=== PATIENT | male | born 1930 | race Caucasian/White ===

== ENCOUNTER → 2016-06-23 | Outpatient (CLI) | payer OTHER ==
[~2016-06-23] MED LIST: ATOR-14 PO; CZR25 PO; DONE1TAB26 PO; ESCI1TAB6 PO; FINA1TAB36 PO; MEMA1CAP3 PO; MEMA1TAB3 PO; OXGN; OXYGEN; PRED10TA PO; PRT40 PO; RANI150T2 PO; ULT/50 PO
[2016-06-23 12:06] LABS: BASO % 0.1 %; BASO ABS # 0.02 K/uL (0-0.2); COMPLETE YES; EOS % 0.5 %; HEMATOCRIT 36.5 % (42-52); IG% 0.3 %; LYMPH % 7.3 %; LYMPH ABS # 1.04 K/uL (1.2-3.4); MEAN CELL VOLUME 93.8 fL (80-100); MEAN CORPUSCULAR HEMOGLOBIN 31.4 pg (25-34); MEAN CORPUSCULAR HGB CONC 33.4 g/dl (32-36); MEAN PLATELET VOLUME 9.2 fL (7.4-10.4); MONO % 7.2 %; NEUT % 84.6 %; PLATELET COUNT 350 K/uL (130-400); RED BLOOD COUNT 3.89 M/uL (4.7-6.1)
[2016-06-23 13:02] LABS: ALT/SGPT 24 U/L (12-78); AST/SGOT 27 U/L (15-37); BLOOD UREA NITROGEN 15 mg/dl (7-18); CALCIUM 9.1 mg/dl (8.5-10.1); CARBON DIOXIDE 33 mmol/L (21-32); CHLORIDE 101 mmol/L (98-107); CHOLESTEROL 138 mg/dl (0-200); GLUCOSE 82 mg/dl (70-99); SODIUM 138 mmol/L (136-145)
[2016-06-23 13:13] LABS: ALB/GLOB RATIO 1.2 (0.9-2); ALKALINE PHOSPHATASE 77 U/L (45-117); CHOLESTEROL/HDL RATIO 1.9; HDL CHOLESTEROL 72 mg/dl; LDL CHOLESTEROL CALCULATED 48 mg/dl; TRIGLYCERIDES 88 mg/dl (0-150); VERY LOW DENSITY LIPOPROT CALC 18 mg/dl
== END | disposition home or self-care (01) ==
LOC: C.LAB1850 10:52
PROVIDERS: ATTEND Internal Medicine
DX: J84.9 Interstitial pulmonary disease, unspecified (principal); E78.5 Hyperlipidemia, unspecified; R41.3 Other amnesia

== ENCOUNTER → 2016-07-07 | Outpatient (CLI) | payer OTHER ==
--- NOTE | 2016-07-07 16:24 | DIAGNOSTIC IMAGING REPORT ---
L-SPINE MIN 4 VIEWS ROUTINE CLINICAL HISTORY: Low back pain. COMPARISON: CT of the abdomen and pelvis June 06, 2015. FINDINGS: Airspace opacities are noted within visualized portions of the lungs. There is extensive atherosclerotic plaque of the abdominal aorta. There is mild levoscoliosis of the lumbar spine. Note is made of 9 mm of anterolisthesis of L4 and L5. 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 Evaluate for fracture difficult on this exam due to scoliosis, degenerative and congenital abnormalities. No acute fracture is identified. There is moderate multilevel degenerative disc disease and severe multilevel facet arthrosis. IMPRESSION: 1. Mild levoscoliosis of the lumbar spine and grade I anterolisthesis of L4 and L5. 2. Decreased sensitivity for detection of fracture, as described above. However, no acute fracture identified. 3. Moderate multilevel degenerative disc disease and severe multilevel facet arthrosis. Electronically signed by: Lucas Valadez M.D. 07/07/2016 4:22 PM Dictated Date/Time: 07/07/2016 4:18 PM
== END | disposition home or self-care (01) ==
LOC: C.RAD1850 16:04
PROVIDERS: ATTEND Physician Assistant
DX: M54.5 Low back pain (principal); M43.16 Spondylolisthesis, lumbar region; M51.36 Other intervertebral disc degeneration, lumbar region

== ENCOUNTER 2016-07-24 20:13 | Inpatient (IN) | payer OTHER ==
[~2016-07-24] VITALS: Ht 152.4 cm; Wt 56.6 kg
[~2016-07-24 20:13] MED LIST changes: -CZR25 PO; -MEMA1TAB3 PO; -OXGN; -RANI150T2 PO; -ULT/50 PO
[2016-07-24] MEDS ORDERED: ULT/50 PO (20:29)
[2016-07-24] MEDS ORDERED: CZR25 PO (20:29)
[2016-07-24] MEDS ORDERED: MEMA1TAB3 PO (20:29)
[2016-07-24] MEDS ORDERED: RANI150T2 PO (20:29)
[2016-07-24] MEDS ORDERED: OPTIRAY 320 IV PRN (20:30)
[2016-07-24] MEDS ORDERED: ALBUT/IPRATROP 3MG/0.5MG NEB 3 ML VIAL INH ONE (20:30)
[2016-07-24 20:56] LABS: HEMATOCRIT 30.4 % (42-52); MEAN CELL VOLUME 90.7 fL (80-100); MEAN CORPUSCULAR HEMOGLOBIN 31.6 pg (25-34); MEAN CORPUSCULAR HGB CONC 34.9 g/dl (32-36); MEAN PLATELET VOLUME 8.4 fL (7.4-10.4); PLATELET COUNT 411 K/uL (130-400); RED BLOOD COUNT 3.35 M/uL (4.7-6.1); WHITE BLOOD COUNT 22.16 K/uL (4.8-10.8)
[2016-07-24 21:05] LABS: ISTAT CREATININE 1.1 mg/dl (0.6-1.3); ISTAT HEMOGLOBIN 10.9 g/dl (14.0-18.0); ISTAT IONIZED CALCIUM 1.13 mmol/l (1.12-1.32)
--- NOTE | 2016-07-24 21:06 | EMERGENCY ROOM VISIT NOTE ---
History Report prepared by Jake: Jenna Collier Under the Supervision of: Dr. French Joshi M.D. First contact with patient: 20:21 Chief Complaint: SHORTNESS OF BREATH Stated Complaint: BACK PAIN History of Present Illness The patient is an 86 year old male who presents to the Emergency Room with complaints of worsening shortness of breath starting prior to arrival. The patient came to the ED by ambulance. The patient states that he has a history of lung cancer and that he is normally on 4 L of O2. The patient complains of being pale, diaphoretic, and mid-back pain. He denies any chest pain. Source of History: patient Onset: prior to arrival Position: other Quality: other (global) Timing: worsening Associated Symptoms: + back pain, + diaphoresis, No chest pain Note: The patient complains of being pallor. Review of Systems See HPI for pertinent positives & negatives. A total of 10 systems reviewed and were otherwise negative. Past Medical & Surgical Medical Problems: (1) Adverse reaction to drug in therapeutic use (2) Alzheimer's Disease (3) Back pain (4) Dementia (5) Esophageal Reflux (6) General Osteoarthrosis (7) Hematochezia due to medication (8) History of prostate cancer (9) Hypertension Nos (10) Hypoxemia (11) Intracerebral Hemorrhage (12) Lung cancer (13) Osteoarthro Nos-Oth Site (14) Pulmonary fibrosis Family History Cancer Heart disease Hypertension Social History Smoking Status: Former Smoker Alcohol Use: none Drug Use: none Marital Status: Housing Status: lives with significant other Occupation Status: retired Current/Historical Medications Scheduled Atorvastatin (Lipitor), 10 MG PO DAILY Donepezil Hydrochloride (Donepezil Hcl), 10 MG PO HS Escitalopram Oxalate (Lexapro), 5 MG PO HS Finasteride (Alopecia) (Finasteride), 5 MG PO DAILY Losartan Potassium (Losartan Potassium), 25 MG PO DAILY Memantine HCl (Memantine HCl), 5 MG PO BID Oxygen (Oxygen), 4 LITERS NA CONTINOUS Prednisone (Prednisone), 10 MG PO DAILY Ranitidine HCl (Ranitidine HCl), 150 MG PO DAILY Scheduled PRN Tramadol Hcl (Ultram), 50 MG PO Q8 PRN for Pain Allergies Coded Allergies: No Known Allergies (Unverified , 07/24/16) Physical Exam Vital Signs Date Time Temp Pulse Resp B/P Pulse Ox O2 Delivery O2 Flow Rate FiO2 07/24/16 22:31 100 20 117/63 95 BiPAP 07/24/16 21:52 100 22 176/93 97 BiPAP 07/24/16 21:15 88 22 95 BiPAP/CPAP 60 07/24/16 21:13 22 97 07/24/16 20:43 96 BiPAP 60 07/24/16 20:41 95 BiPAP 60 07/24/16 20:40 92 Non-Rebreather 10.0 07/24/16 20:34 36.7 94 26 155/79 72 Nasal Cannula 4.0 07/24/16 20:34 72 Nasal Cannula 4.0 07/24/16 20:28 93 Physical Exam GENERAL: Patient is well-nourished and cachetic in appearance. HEAD: Normocephalic atraumatic EYES: Ocular movements intact pupils equal and react to light OROPHARYNX mucous membranes are moist no exudates present no erythema or edema present NECK: Supple no nuchal rigidity CHEST: Good equal expansion LUNGS: Clear and equal to auscultation CARDIAC: Normal S1 and S2 ABDOMEN: Soft nontender no guarding BACK: No CVA tenderness EXTREMITIES: No pain upon palpation normal muscle strength in all groups no clubbing cyanosis or edema NEURO: Patient is following commands is answering questions appropriately. Alert and oriented x3 Cranial Nerves 2-12 grossly intact Medical Decision & Procedures ER Provider Diagnostic Interpretation: Radiology results as stated below per my review and radiologist interpretation: CHEST ONE VIEW PORTABLE HISTORY: Short of breath. COMPARISON: Chest 06/07/2015. FINDINGS: Progression of the extensive bilateral airspace opacities, left greater than right. No pneumothorax. Suspect a small left pleural effusion. The heart is stable in size. IMPRESSION: Progression of the extensive bilateral airspace opacities. This favors a pneumonia. Electronically signed by: Omari Marx M.D. 07/24/2016 9:07 PM Dictated Date/Time: 07/24/2016 9:06 PM CHEST CTA for PULMONARY ARTERIES CT DOSE: 403.98 mGy.cm HISTORY: Short of breath. TECHNIQUE: Multiaxial CT images of the chest were performed following the intravenous administration of contrast to evaluate the pulmonary arteries. Maximal intensity projection images were also obtained. COMPARISON STUDY: Chest CT 03/14/2015. FINDINGS: Fusion of the T12-L1 vertebral bodies. This remains unchanged. Mild central compression deformity at T11. This is new from the prior studies and likely represents an acute compression fracture. Tortuous descending thoracic aorta. No evidence for an aortic dissection. Trace right and small left pleural effusions have progressed. Subsegmental pulmonary arteries and the majority of the right lung segmental pulmonary arteries are nondiagnostic due to the motion artifact. The remaining pulmonary arteries show no evidence for pulmonary embolus. The heart is mildly enlarged. No pneumothorax. Mucoid material within the left mainstem bronchus. There is now dense consolidation involving the majority of the left lower lobe and lingula. There are groundglass opacities within the left lung apex. Progressive groundglass and consolidative airspace opacities within the right lung. Multiple small foci of cavitation seen within the areas of consolidation most pronounced within the left lower lobe. Therefore, these findings favor a necrotizing pneumonia. The visualized liver and spleen are unremarkable. No significant mediastinal or hilar lymphadenopathy. IMPRESSION: 1. No definite evidence for pulmonary embolus with limitations as described above. 2. Significant progression of the bilateral airspace opacities as described above. These also demonstrate small areas of cavitation consistent with a necrotizing pneumonia. 3. Trace right and small left pleural effusions. 4. Mild central compression deformity at T11 which is new from the prior studies. Electronically signed by: Omari Marx M.D. 07/24/2016 9:37 PM Dictated Date/Time: 07/24/2016 9:26 PM Laboratory Results Test 07/24/16 20:45 07/24/16 20:52 07/24/16 21:35 07/24/16 21:46 Immature Granulocyte % (Auto) 0.3 % White Blood Count 22.16 K/uL (4.8-10.8) Red Blood Count 3.35 M/uL (4.7-6.1) Hemoglobin 10.6 g/dL (14.0-18.0) Hematocrit 30.4 % (42-52) Mean Corpuscular Volume 90.7 fL (80-100) Mean Corpuscular Hemoglobin 31.6 pg (25-34) Mean Corpuscular Hemoglobin Concent 34.9 g/dl (32-36) Platelet Count 411 K/uL (130-400) Mean Platelet Volume 8.4 fL (7.4-10.4) Neutrophils (%) (Auto) 90.8 % Lymphocytes (%) (Auto) 3.8 % Monocytes (%) (Auto) 5.1 % Eosinophils (%) (Auto) 0.0 % Basophils (%) (Auto) 0.0 % Neutrophils # (Auto) 20.11 K/uL (1.4-6.5) Lymphocytes # (Auto) 0.84 K/uL (1.2-3.4) Monocytes # (Auto) 1.13 K/uL (0.11-0.59) Eosinophils # (Auto) 0.00 K/uL (0-0.5) Basophils # (Auto) 0.01 K/uL (0-0.2) Immature Granulocyte # (Auto) 0.07 K/uL (0.00-0.02) Total Bilirubin 0.9 mg/dl (0.2-1) Aspartate Amino Transf (AST/SGOT) 41 U/L (15-37) Alanine Aminotransferase (ALT/SGPT) 26 U/L (12-78) Alkaline Phosphatase 123 U/L (45-117) Total Creatine Kinase 305 U/L (39-308) Creatine Kinase MB 7.3 ng/ml (0.5-3.6) Creatine Kinase MB Ratio 2.4 (0-3.0) Troponin I 0.044 ng/ml (0-0.045) Total Protein 7.0 gm/dl (6.4-8.2) Albumin 3.3 gm/dl (3.4-5.0) Globulin 3.7 gm/dl (2.5-4.0) Albumin/Globulin Ratio 0.9 (0.9-2) Bedside Hemoglobin 10.9 g/dl (14.0-18.0) Bedside Hematocrit 32 % (42-52) Bedside Sodium 124 mEq/L (135-144) Bedside Potassium 4.7 mEq/L (3.3-5.0) Bedside Chloride 84 mEq/L (101-112) Bedside Total CO2 28 mEq/l (24-31) Bedside Blood Urea Nitrogen 30 mg/dl (7-18) Bedside Creatinine 1.1 mg/dl (0.6-1.3) Bedside Glucose (other) 109 mg/dl (70-99) Bedside Ionized Calcium (Petra) 1.13 mmol/l (1.12-1.32) Urine Color YELLOW Urine Appearance CLEAR (CLEAR) Urine pH 5.5 (4.5-7.5) Urine Specific Odell 1.028 (1.000-1.030) Urine Protein 1+ (NEG) Urine Glucose (UA) NEG (NEG) Urine Ketones TRACE (NEG) Urine Occult Blood 1+ (NEG) Urine Nitrite NEG (NEG) Urine Bilirubin NEG (NEG) Urine Urobilinogen NEG (NEG) Urine Leukocyte Esterase NEG (NEG) Urine WBC (Auto) 1-5 /hpf (0-5) Urine RBC (Auto) 0-4 /hpf (0-4) Urine Hyaline Casts (Auto) 10-30 /lpf (0-5) Urine Epithelial Cells (Auto) 10-20 /lpf (0-5) Urine Bacteria (Auto) NEG (NEG) Arterial Blood pH 7.42 (7.35-7.45) Arterial Blood Partial Pressure CO2 42 mmHg (35-46) Arterial Blood Partial Pressure O2 77 mm/Hg (80-95) Arterial Blood HCO3 27 mmol/L (19-24) Arterial Blood Oxygen Saturation 93.7 % (90-95) Arterial Blood Base Excess 2.2 mEq/L (-9-1.8) Arterial Blood Gas Delivery 60% Mata Test POS (POS) Labs reviewed by ED physician. Medications Administered Medications (Trade) Dose Ordered Sig/Jared Route Start Time Stop Time Status Last Admin Dose Admin Albuterol/ Ipratropium (Duoneb) 12 ml ONE ONCE INH 07/24/16 20:30 07/24/16 20:31 DC 07/24/16 20:30 12 ML Piperacillin Sod/ Tazobactam Sod (Zosyn Iv) 4.5 gm NOW STAT IV 07/24/16 21:23 07/24/16 21:24 DC 07/24/16 21:54 4.5 GM Levofloxacin 750 mg 750 mg NOW ONCE IV 07/24/16 21:30 07/24/16 21:31 DC 07/24/16 22:23 750 MG Vancomycin HCl/ Sodium Chloride (Vancomycin Inj/ Nss 250ml) 270 ml @ 125 mls/hr NOW STAT IV 07/24/16 21:23 07/24/16 23:32 DC 07/24/16 22:22 125 MLS/HR Morphine Sulfate (MoRPHine SULFATE INJ) 4 mg NOW STAT IV 07/24/16 22:11 07/24/16 22:13 DC 07/24/16 22:22 4 MG Ondansetron HCl 4 mg 4 mg NOW STAT IV 07/24/16 22:11 07/24/16 22:13 DC 07/24/16 22:23 4 MG Sodium Chloride (Nss 500ml) 500 ml @ 999 mls/hr Q31M STAT IV 07/24/16 22:11 07/24/16 22:41 DC 07/24/16 22:31 999 MLS/HR Methylprednisolone Sodium Succinate (Solu-Medrol IV) 60 mg NOW STAT IV 07/24/16 22:15 07/24/16 22:16 DC 07/24/16 22:22 60 MG Haloperidol (Haldol Tab) 5 mg NOW STAT PO 07/24/16 23:24 07/24/16 23:25 DC 07/24/16 23:36 5 MG Morphine Sulfate (MoRPHine SULFATE INJ) 4 mg NOW STAT IV 07/24/16 23:24 07/24/16 23:25 DC 07/24/16 23:36 4 MG ECG Indication: SOB/dyspnea Rate (beats per minute): 95 Rhythm: sinus rhythm Findings: 1st degree AV block, no acute ischemic change, no ectopy ED Course 2021: Past medical records reviewed. The patient was evaluated in room C3. A complete history and physical examination was performed. 2029: Ordered Duoneb 12 ml INH. 2122: Ordered Vancomycin HCl 1000 mg/ Sodium Chloride 270 ml @ 125 mls/hr IV, Zosyn Iv 4.5 gm IV. 2129: Ordered Levofloxacin 750 mg IV. 2134: I reevaluated the patient and informed the patient's family of the findings. 2207: I discussed the patient's case with Dr. Malhotra, he has agreed to evaluate the patient for further management and care. Medical Decision Medication Reconciliation: I attest that I have personally reviewed the patient' s current medication list. Blood Pressure Screening: Patient was found to have an elevated blood pressure and was referred to their primary care doctor for recheck and further treatment. Differential diagnosis: Etiologies such as infections, reactive airway disease, pneumonia, pneumothorax , COPD, CHF, cardiac ischemia, pulmonary embolism, musculoskeletal, gastrointestinal, as well as others were entertained. This is an 86-year-old male who presents emergency department hypoxic complaining of back pain. The patient was given an hour-long breathing treatment and started on antibiotics in addition the patient was also given normal saline bolus. Blood cultures were obtained. I did discuss the case with the hospitalist service however the patient has what appears to be either necrotizing pneumonia or adenocarcinoma I CAT scan so was also discussed with Dr. Kidd who agreed to see the patient in the morning. Patient was in agreement with the treatment plan. Consults Time Called: 2202 Consulting Physician: Dr. Malhotra Returned Call: [phone] I discussed the patient's case with Dr. Malhotra, he has agreed to evaluate the patient for further management and care. Impression Primary Impression: Pneumonia Critical Care I have personally spent greater than 30 minutes of critical care time in the direct management of this patient. This includes bedside care, interpretation of diagnostic studies, and testing, discussion with consultants, patient, and family members, and other required patient management activities. This 30 minutes is in excess of all separately billable procedures. Scribe Attestation The scribe's documentation has been prepared under my direction and personally reviewed by me in its entirety. I confirm that the note above accurately reflects all work, treatment, procedures, and medical decision making performed by me. Departure Information Dispostion Being Evaluated By Hospitalist Referrals Bhaskar Martinez M.D. (PCP) Patient Instructions My [facility] Problem Qualifiers Primary Impression: Pneumonia Pneumonia type: due to unspecified organism Laterality: unspecified laterality Lung location: unspecified part of lung Qualified Codes: J18.9 - Pneumonia, unspecified organism
--- NOTE | 2016-07-24 21:09 | DIAGNOSTIC IMAGING REPORT ---
CHEST ONE VIEW PORTABLE HISTORY: Short of breath. COMPARISON: Chest 06/07/2015. FINDINGS: Progression of the extensive bilateral airspace opacities, left greater than right. No pneumothorax. Suspect a small left pleural effusion. The heart is stable in size. IMPRESSION: Progression of the extensive bilateral airspace opacities. This favors a pneumonia. Electronically signed by: Omari Marx M.D. 07/24/2016 9:07 PM Dictated Date/Time: 07/24/2016 9:06 PM
[2016-07-24] MEDS ORDERED: OXGN (21:11)
[2016-07-24 21:12] LABS: BUN/CREATININE RATIO 31.9 (10-20); CREATININE 0.98 mg/dl (0.60-1.40); POTASSIUM 4.6 mmol/L (3.5-5.1)
[2016-07-24 21:13] VITALS: PULSE 22; O2SAT 97
[2016-07-24 21:14] LABS: BASO ABS # 0.01 K/uL (0-0.2); COMPLETE YES; IG% 0.3 %; LYMPH % 3.8 %; LYMPH ABS # 0.84 K/uL (1.2-3.4); MONO % 5.1 %; NEUT % 90.8 %
[2016-07-24 21:15] VITALS: PULSE 88; O2SAT 95
[2016-07-24 21:17] LABS: ALB/GLOB RATIO 0.9 (0.9-2); CKMB/CK RATIO 2.4 (0-3.0)
[2016-07-24] MEDS ORDERED: PIPERACILLIN/TAZOBACTAM 4.5 GM/100ML D5W IV STA (21:23)
[2016-07-24] MEDS ORDERED: VANCOMYCIN INJ 1,000 MG in SODIUM CHLORIDE 0.9% 250ML 250 ML IV STA (21:23)
[2016-07-24] MEDS ORDERED: LEVAQUIN 750MG / 150ML D5W IV ONE (21:30)
--- NOTE | 2016-07-24 21:38 | DIAGNOSTIC IMAGING REPORT ---
CHEST CTA for PULMONARY ARTERIES CT DOSE: 403.98 mGy.cm HISTORY: Short of breath. TECHNIQUE: Multiaxial CT images of the chest were performed following the intravenous administration of contrast to evaluate the pulmonary arteries. Maximal intensity projection images were also obtained. COMPARISON STUDY: Chest CT 03/14/2015. FINDINGS: Fusion of the T12-L1 vertebral bodies. This remains unchanged. Mild central compression deformity at T11. This is new from the prior studies and likely represents an acute compression fracture. Tortuous descending thoracic aorta. No evidence for an aortic dissection. Trace right and small left pleural effusions have progressed. Subsegmental pulmonary arteries and the majority of the right lung segmental pulmonary arteries are nondiagnostic due to the motion artifact. The remaining pulmonary arteries show no evidence for pulmonary embolus. The heart is mildly enlarged. No pneumothorax. Mucoid material within the left mainstem bronchus. There is now dense consolidation involving the majority of the left lower lobe and lingula. There are groundglass opacities within the left lung apex. Progressive groundglass and consolidative airspace opacities within the right lung. Multiple small foci of cavitation seen within the areas of consolidation most pronounced within the left lower lobe. Therefore, these findings favor a necrotizing pneumonia. The visualized liver and spleen are unremarkable. No significant mediastinal or hilar lymphadenopathy. IMPRESSION: 1. No definite evidence for pulmonary embolus with limitations as described above. 2. Significant progression of the bilateral airspace opacities as described above. These also demonstrate small areas of cavitation consistent with a necrotizing pneumonia. 3. Trace right and small left pleural effusions. 4. Mild central compression deformity at T11 which is new from the prior studies. Electronically signed by: Omari Marx M.D. 07/24/2016 9:37 PM Dictated Date/Time: 07/24/2016 9:26 PM
[2016-07-24 21:54] LABS: CALCIUM 8.7 mg/dl (8.5-10.1)
[2016-07-24 21:55] LABS: ARTERIAL BLD GAS O2 SATURATION 93.7 % (90-95); ARTERIAL BLOOD GAS BASE EXCESS 2.2 mEq/L (-9-1.8); ARTERIAL BLOOD GAS HCO3 27 mmol/L (19-24); ARTERIAL BLOOD GAS PO2 77 mm/Hg (80-95); ARTERIAL BLOOD GAS pH 7.42 (7.35-7.45)
[2016-07-24 21:56] LABS: ALLEN TEST POS (POS); O2 ADMINISTRATION 60%
[2016-07-24 21:58] LABS: URINE APPEARANCE CLEAR (CLEAR); URINE BILIRUBIN NEG (NEG); URINE COLOR YELLOW; URINE NITRITE NEG (NEG); URINE PH 5.5 (4.5-7.5); URINE SPECIFIC GRAVITY 1.028 (1.000-1.030); UROBILINOGEN NEG (NEG)
[2016-07-24 22:09] LABS: MANUAL MICROSCOPIC REQUIRED? NO; REVIEW REQ? NO
[2016-07-24] MEDS ORDERED: SODIUM CHLORIDE 0.9% 500ML 500 ML IV STA (22:11)
[2016-07-24] MEDS ORDERED: ONDANSETRON INJ 2 MG/ML 2 ML VIAL IV STA (22:11)
[2016-07-24] MEDS ORDERED: MoRPHine SULFATE 4 MG/ML 1 ML CARP\\VIAL IV STA ×2 (22:11→23:24)
[2016-07-24] MEDS ORDERED: METHYLPREDNISOLONE 125 MG VIAL IV STA (22:15)
[2016-07-24] MEDS ORDERED: HALOPERIDOL 5 MG TAB PO STA (23:24)
[2016-07-24] MEDS ORDERED: MAGNESIUM HYDROXIDE SUSP 30 ML UDC PO PRN (23:30)
[2016-07-24] MEDS ORDERED: ACETAMINOPHEN 325 MG TAB PO PRN (23:30)
[2016-07-24] MEDS ORDERED: ALUMINUM/MAGNESIUM/SIMETH (MAALOX MAX) 30 ML UDC PO PRN (23:30)
[2016-07-24] MEDS ORDERED: POLYETHYLENE (MIRALAX) 17 GM PACK PO PRN (23:30)
[2016-07-24] MEDS ORDERED: ONDANSETRON INJ 2 MG/ML 2 ML VIAL IV PRN (23:30)
[2016-07-24] MEDS ORDERED: MoRPHine SULFATE 2 MG/ML CARP IV STA (23:38)
[2016-07-24] MEDS ORDERED: LORAZEPAM 2 MG/ML 1 ML VIAL IV STA (23:38)
[2016-07-24] MEDS ORDERED: LORAZEPAM 2 MG/ML 1 ML VIAL ONE (23:50)
[2016-07-24] MEDS ORDERED: MoRPHine SULFATE 2 MG/ML CARP ONE (23:50)
--- NOTE | 2016-07-24 23:56 | History and Physical ---
History & Physical Date & Time of Service: July 24, 2016 at 23:55 Chief Complaint: Back Pain Primary Care Physician: Bhaskar Martinez M.D. History of Present Illness Source: patient 86 y/o M Hx dementia, questionable pulmonary fibrosis, lung adenocarcinoma which he has chosen not to treat. The pt normally wears 4l 02 continuous at home. He has become progressively confused, agitated and hypoxic over the course of the day. The family does not report a cough above baseline, CP or fevers. At the time of admission the pt is requiring BIPAP to maintain an adequate saturation and cannot contribute to the HPI due to confusion. A CT chest was obtained and initially read as a necrotizing pneumonia. This was discussed with the cardiothoracic service however and it is felt that the cavitations may be related to his lung CA rather than to an acute infectious process. The pt is a level 5 and the family are aware that his short-term prognosis may be poor. They have indicated that they are amenable to antibiotics and other supportive measures however they were also contemplating a transition to palliative care or hospice. Initial labs are notable for leukocytosis and hyponatremia. Past Medical/Surgical History Medical Problems: (1) Dementia Status: Chronic (2) Lung cancer Status: Chronic Family History Cancer Heart disease Hypertension Social History Smoking Status: Former Smoker Drug Use: none Marital Status: Occupational Status: retired Immunizations History of Influenza Vaccine: Unknown History of Tetanus Vaccine?: Unknown History of Pneumococcal: Unknown History of Hepatitis B Vaccine: Unknown Multi-Drug Resistant Organisms History of MDRO: No Allergies Coded Allergies: No Known Allergies (Unverified , 07/24/16) Home Medications Scheduled Atorvastatin (Lipitor), 10 MG PO DAILY Donepezil Hydrochloride (Donepezil Hcl), 10 MG PO HS Escitalopram Oxalate (Lexapro), 5 MG PO HS Finasteride (Alopecia) (Finasteride), 5 MG PO DAILY Losartan Potassium (Losartan Potassium), 25 MG PO DAILY Memantine HCl (Memantine HCl), 5 MG PO BID Oxygen (Oxygen), 4 LITERS NA CONTINOUS Prednisone (Prednisone), 10 MG PO DAILY Ranitidine HCl (Ranitidine HCl), 150 MG PO DAILY Scheduled PRN Tramadol Hcl (Ultram), 50 MG PO Q8 PRN for Pain Review of Systems Pt cannot provide - brought in for hypoxia and agitation as above Physical Exam Vital Signs Date Time Temp Pulse Resp B/P Pulse Ox O2 Delivery O2 Flow Rate FiO2 07/24/16 22:31 100 20 117/63 95 BiPAP 07/24/16 21:52 100 22 176/93 97 BiPAP 07/24/16 21:15 88 22 95 BiPAP/CPAP 60 07/24/16 21:13 22 97 07/24/16 20:43 96 BiPAP 60 07/24/16 20:41 95 BiPAP 60 07/24/16 20:40 92 Non-Rebreather 10.0 07/24/16 20:34 36.7 94 26 155/79 72 Nasal Cannula 4.0 07/24/16 20:34 72 Nasal Cannula 4.0 07/24/16 20:28 93 General Appearance: + moderate distress Head: normocephalic, atraumatic Eyes: normal inspection, EOMI ENT: normal ENT inspection Neck: supple, + JVD Respiratory/Chest: + pertinent finding (Very poor b/l air movement - crackles audible at mid lungs) Cardiovascular: + tachycardia Abdomen/GI: normal bowel sounds, non tender, soft Back: normal inspection, no CVA tenderness Extremities/Musculoskelatal: normal inspection, normal range of motion Neurologic/Psych: 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, + pertinent finding (Moving all extrems - agitated/confsed - no clear focal deficuts) Skin: normal color, warm/dry, no rash Diagnostics Laboratory Results Results Past 24 Hours Test 07/24/16 20:45 07/24/16 20:52 07/24/16 21:35 07/24/16 21:46 Range/Units White Blood Count 22.16 4.8-10.8 K/uL Red Blood Count 3.35 4.7-6.1 M/uL Hemoglobin 10.6 14.0-18.0 g/dL Hematocrit 30.4 42-52 % Mean Corpuscular Volume 90.7 80-100 fL Mean Corpuscular Hemoglobin 31.6 25-34 pg Mean Corpuscular Hemoglobin Concent 34.9 32-36 g/dl Platelet Count 411 130-400 K/uL Mean Platelet Volume 8.4 7.4-10.4 fL Neutrophils (%) (Auto) 90.8 % Lymphocytes (%) (Auto) 3.8 % Monocytes (%) (Auto) 5.1 % Eosinophils (%) (Auto) 0.0 % Basophils (%) (Auto) 0.0 % Neutrophils # (Auto) 20.11 1.4-6.5 K/uL Lymphocytes # (Auto) 0.84 1.2-3.4 K/uL Monocytes # (Auto) 1.13 0.11-0.59 K/uL Eosinophils # (Auto) 0.00 0-0.5 K/uL Basophils # (Auto) 0.01 0-0.2 K/uL RDW Standard Deviation 44.3 36.4-46.3 fL RDW Coefficient of Variation 13.4 11.5-14.5 % Immature Granulocyte % (Auto) 0.3 % Immature Granulocyte # (Auto) 0.07 0.00-0.02 K/uL Sodium Level 123 136-145 mmol/L Potassium Level 4.6 3.5-5.1 mmol/L Chloride Level 87 98-107 mmol/L Carbon Dioxide Level 29 21-32 mmol/L Anion Gap 7.0 17.0 16-25 mmol/L Blood Urea Nitrogen 31 7-18 mg/dl Creatinine 0.98 0.60-1.40 mg/dl Est Creatinine Clear Calc Drug Dose 37.6 ml/min Estimated GFR () 80.0 Estimated GFR (Non- 69.0 BUN/Creatinine Ratio 31.9 10-20 Random Glucose 103 70-99 mg/dl Calcium Level 8.7 8.5-10.1 mg/dl Total Bilirubin 0.9 0.2-1 mg/dl Aspartate Amino Transf (AST/SGOT) 41 15-37 U/L Alanine Aminotransferase (ALT/SGPT) 26 12-78 U/L Alkaline Phosphatase 123 45-117 U/L Total Creatine Kinase 305 39-308 U/L Creatine Kinase MB 7.3 0.5-3.6 ng/ml Creatine Kinase MB Ratio 2.4 0-3.0 Troponin I 0.044 0-0.045 ng/ml Total Protein 7.0 6.4-8.2 gm/dl Albumin 3.3 3.4-5.0 gm/dl Globulin 3.7 2.5-4.0 gm/dl Albumin/Globulin Ratio 0.9 0.9-2 Bedside Hemoglobin 10.9 14.0-18.0 g/dl Bedside Hematocrit 32 42-52 % Bedside Sodium 124 135-144 mEq/L Bedside Potassium 4.7 3.3-5.0 mEq/L Bedside Chloride 84 101-112 mEq/L Bedside Total CO2 28 24-31 mEq/l Bedside Blood Urea Nitrogen 30 7-18 mg/dl Bedside Creatinine 1.1 0.6-1.3 mg/dl Bedside Glucose (other) 109 70-99 mg/dl Bedside Ionized Calcium (Petra) 1.13 1.12-1.32 mmol/l Urine Color YELLOW Urine Appearance CLEAR CLEAR Urine pH 5.5 4.5-7.5 Urine Specific [place] 1.028 1.000-1.030 Urine Protein 1+ NEG Urine Glucose (UA) NEG NEG Urine Ketones TRACE NEG Urine Occult Blood 1+ NEG Urine Nitrite NEG NEG Urine Bilirubin NEG NEG Urine Urobilinogen NEG NEG Urine Leukocyte Esterase NEG NEG Urine WBC (Auto) 1-5 0-5 /hpf Urine RBC (Auto) 0-4 0-4 /hpf Urine Hyaline Casts (Auto) 10-30 0-5 /lpf Urine Epithelial Cells (Auto) 10-20 0-5 /lpf Urine Bacteria (Auto) NEG NEG Arterial Blood pH 7.42 7.35-7.45 Arterial Blood Partial Pressure CO2 42 35-46 mmHg Arterial Blood Partial Pressure O2 77 80-95 mm/Hg Arterial Blood HCO3 27 19-24 mmol/L Arterial Blood Oxygen Saturation 93.7 90-95 % Arterial Blood Base Excess 2.2 -9-1.8 mEq/L Arterial Blood Gas Delivery 60% Mata Test POS POS Microbiology Results 07/24/16 Blood Culture, Received Pending 07/24/16 Blood Culture, Received Pending Diagnostic Radiology CT chest 1. No definite evidence for pulmonary embolus with limitations as described above. 2. Significant progression of the bilateral airspace opacities as described above. These also demonstrate small areas of cavitation consistent with a necrotizing pneumonia. 3. Trace right and small left pleural effusions. 4. Mild central compression deformity at T11 which is new from the prior studies. EKG Sinus , LAFB , 1st degree AV - no significant change Impression Assessment and Plan 86 y/o M Hx dementia, questionable pulmonary fibrosis, lung adenocarcinoma which he has chosen not to treat. The pt normally wears 4l 02 continuous at home. He has become progressively confused, agitated and hypoxic over the course of the day. The family does not report a cough above baseline, CP or fevers. At the time of admission the pt is requiring BIPAP to maintain an adequate saturation and cannot contribute to the HPI due to confusion. A CT chest was obtained and initially read as a necrotizing pneumonia. This was discussed with the cardiothoracic service however, and it is felt that the cavitations may be related to his lung CA rather than to an acute infectious process. 1) Hypoxia/agitation - acute PNM vs progressive malignant process - history of underlying pulmonary fibrosis per previous records. Pt is currently on Bipap. We will treat for a presumed pneumonia which may also be post-obstructive. Nebs scheduled and pt started on IV steroids. Limited information is available in the chart presently and it would be prudent to contact his primary MD to clarify his chronic conditions including fibrosis which did not appear in the chart during an admission in 2016. The family additionally state that they have not yet seen a resident care provider although they were scheduled to do so. They are requesting a pulmonology consult for further input. Again, they are aware that the pts prognosis may be poor. 2) Hyponatremia - May be related to dehydration or additionally to SIADH owing to CA - we will hydrate aggressively overnight and recheck labs AM. A lower goal should likely be set for correction. 3) Dementia - contributing to current delirium. Pt received Haldol in ER - Ativan PRN provided. 4) Lung CA - pt has made a decision not to treat. DNR/DNI - SCDS - may need to avoid anticoagulation if extensive changes and necrosis are due to CA - he also has a history of PGI bleeds Total time for this admit including review of labs, meds, CT, records - discussion with family and ER attending - 48 min Level of Care Telemetry Resuscitation Status DO NOT RESUSCITATE VTE Prophylaxis VTE Risk Assessment Done? Y/N: Yes Risk Level: High Given or contraindicated: SCD's
[2016-07-25] VITALS (18 sets, daily range): BP systolic 90–166; BP diastolic 50–83; PULSE 22–107; TEMP 36.4–36.9; O2SAT 86–100; Ht 152.4 cm; Wt 56.6 kg
[2016-07-25] MEDS: SODIUM CHLORIDE 0.9% 1000ML 1,000 ML IV SCH ×3 (01:02→20:58)
[2016-07-25] MEDS ORDERED: AMPICILLIN/SULBACTAM CONSULT ACTIVE PRN ×2 (03:15)
[2016-07-25] MEDS: METHYLPREDNISOLONE IV 60 MG in SYRINGE 0 ML IV SCH ×3 (03:51→16:32)
[2016-07-25] MEDS: AMPICILLIN/SULBACTAM SOD INJ 3,000 MG in SODIUM CHLORIDE 0.9% 100ML 100 ML IV SCH ×4 (04:11→21:59)
[2016-07-25] MEDS: AZITHROMYCIN IV 500 MG in DEXTROSE 5% 250ML 250 ML IV SCH (05:41)
[2016-07-25 07:26] LABS: HEMATOCRIT 26.9 % (42-52); MEAN CELL VOLUME 91.8 fL (80-100); MEAN CORPUSCULAR HEMOGLOBIN 31.1 pg (25-34); MEAN CORPUSCULAR HGB CONC 33.8 g/dl (32-36); MEAN PLATELET VOLUME 8.6 fL (7.4-10.4); PLATELET COUNT 376 K/uL (130-400); RED BLOOD COUNT 2.93 M/uL (4.7-6.1); WHITE BLOOD COUNT 17.96 K/uL (4.8-10.8)
[2016-07-25 08:02] LABS: BUN/CREATININE RATIO 28.6 (10-20); CALCIUM 8.1 mg/dl (8.5-10.1); CREATININE 0.95 mg/dl (0.60-1.40); MAGNESIUM 2.4 mg/dl (1.8-2.4); POTASSIUM 4.7 mmol/L (3.5-5.1)
[2016-07-25] MEDS ORDERED: LEVALBUTEROL/IPRATROPIUM NEB INH PRN (10:30)
[2016-07-25] MEDS: LEVALBUTEROL 1.25MG/0.5ML NEB INH SCH ×3 (11:14→19:38)
[2016-07-25] MEDS: IPRATROPIUM BROMIDE NEB SOLN 0.02% 2.5 ML VIAL INH SCH ×3 (11:14→19:38)
[2016-07-25] MEDS ORDERED: LEVALBUTEROL/IPRATROPIUM NEB INH SCH (15:00)
[2016-07-25] MEDS: MoRPHine SULFATE 4 MG/ML 1 ML CARP\\VIAL IV PRN ×2 (19:45→23:31)
[2016-07-25] MEDS: METHYLPREDNISOLONE IV 40 MG in SYRINGE 0 ML IV SCH (23:26)
[2016-07-26] MEDS ORDERED: HALOPERIDOL LACTATE 5 MG/ML 1 ML VIAL IM STA ×2 (00:07→01:27)
[2016-07-26] MEDS ORDERED: LORAZEPAM 2 MG/ML 1 ML VIAL IV PRN ×3 (01:30→08:00)
[2016-07-26] MEDS: IPRATROPIUM BROMIDE NEB SOLN 0.02% 2.5 ML VIAL INH SCH ×4 (02:32→19:06)
[2016-07-26] MEDS: LEVALBUTEROL 1.25MG/0.5ML NEB INH SCH ×4 (02:32→19:06)
[2016-07-26 02:33] VITALS: PULSE 106; O2SAT 91
[2016-07-26] MEDS: AMPICILLIN/SULBACTAM SOD INJ 3,000 MG in SODIUM CHLORIDE 0.9% 100ML 100 ML IV SCH (03:39)
[2016-07-26] MEDS: AZITHROMYCIN IV 500 MG in DEXTROSE 5% 250ML 250 ML IV SCH (06:20)
--- NOTE | 2016-07-26 06:21 | Progress Note ---
Subjective Date of Service: July 25, 2016. Subjective pt arouses in raspy voice, family at bedside and did have prolounged discussion in [address] regarding direction and agressive ness of care, spent 45 minutes with family and patient Pt himself is fatigued and does not speak much, can nod that he is short of breath but comfortable otherwise ROS was unable to be obtained due to lethargy Problem List Medical Problems: (1) Altered mental status Status: Acute (2) Dementia Status: Acute (3) GI bleed Status: Acute (4) Pneumonia Status: Acute (5) Pneumonia Status: Acute (6) Shortness of breath Status: Acute Review of Systems Constitutional: + fatigue, + weakness Objective Vital Signs Date Time Temp Pulse Resp B/P Pulse Ox O2 Delivery O2 Flow Rate FiO2 07/25/16 07:24 100 24 94/57 94 CPAP 35 07/25/16 05:28 96 93 35 07/25/16 04:48 36.9 93 18 90/50 96 BiPAP 07/25/16 04:00 BiPAP 07/25/16 02:40 95 96 40 07/25/16 00:37 36.4 105 24 116/70 98 BiPAP 60 07/25/16 00:34 22 98 50 07/25/16 00:07 98 22 105/59 99 07/24/16 22:31 100 20 117/63 95 BiPAP 07/24/16 21:52 100 22 176/93 97 BiPAP 07/24/16 21:15 88 22 95 BiPAP/CPAP 60 07/24/16 21:13 22 97 07/24/16 20:43 96 BiPAP 60 07/24/16 20:41 95 BiPAP 60 07/24/16 20:40 92 Non-Rebreather 10.0 07/24/16 20:34 36.7 94 26 155/79 72 Nasal Cannula 4.0 07/24/16 20:34 72 Nasal Cannula 4.0 07/24/16 20:28 93 Physical Exam General Appearance: + moderate distress, + thin Neck: supple, trachea midline Respiratory/Chest: + respiratory distress, + decreased breath sounds, + accessory muscle use Cardiovascular: regular rate, rhythm, + systolic murmur Abdomen: normal bowel sounds, soft Neurologic/Psychiatric: + depressed affect, + disoriented Laboratory Results Last 24 Hours Test 07/24/16 20:45 07/24/16 20:52 07/24/16 21:35 07/24/16 21:46 White Blood Count 22.16 K/uL Red Blood Count 3.35 M/uL Hemoglobin 10.6 g/dL Hematocrit 30.4 % Mean Corpuscular Volume 90.7 fL Mean Corpuscular Hemoglobin 31.6 pg Mean Corpuscular Hemoglobin Concent 34.9 g/dl Platelet Count 411 K/uL Mean Platelet Volume 8.4 fL Neutrophils (%) (Auto) 90.8 % Lymphocytes (%) (Auto) 3.8 % Monocytes (%) (Auto) 5.1 % Eosinophils (%) (Auto) 0.0 % Basophils (%) (Auto) 0.0 % Neutrophils # (Auto) 20.11 K/uL Lymphocytes # (Auto) 0.84 K/uL Monocytes # (Auto) 1.13 K/uL Eosinophils # (Auto) 0.00 K/uL Basophils # (Auto) 0.01 K/uL RDW Standard Deviation 44.3 fL RDW Coefficient of Variation 13.4 % Immature Granulocyte % (Auto) 0.3 % Immature Granulocyte # (Auto) 0.07 K/uL Sodium Level 123 mmol/L Potassium Level 4.6 mmol/L Chloride Level 87 mmol/L Carbon Dioxide Level 29 mmol/L Anion Gap 7.0 mmol/L 17.0 mmol/L Blood Urea Nitrogen 31 mg/dl Creatinine 0.98 mg/dl Est Creatinine Clear Calc Drug Dose 37.6 ml/min Estimated GFR () 80.0 Estimated GFR (Non- 69.0 BUN/Creatinine Ratio 31.9 Random Glucose 103 mg/dl Calcium Level 8.7 mg/dl Total Bilirubin 0.9 mg/dl Aspartate Amino Transf (AST/SGOT) 41 U/L Alanine Aminotransferase (ALT/SGPT) 26 U/L Alkaline Phosphatase 123 U/L Total Creatine Kinase 305 U/L Creatine Kinase MB 7.3 ng/ml Creatine Kinase MB Ratio 2.4 Troponin I 0.044 ng/ml Total Protein 7.0 gm/dl Albumin 3.3 gm/dl Globulin 3.7 gm/dl Albumin/Globulin Ratio 0.9 Bedside Hemoglobin 10.9 g/dl Bedside Hematocrit 32 % Bedside Sodium 124 mEq/L Bedside Potassium 4.7 mEq/L Bedside Chloride 84 mEq/L Bedside Total CO2 28 mEq/l Bedside Blood Urea Nitrogen 30 mg/dl Bedside Creatinine 1.1 mg/dl Bedside Glucose (other) 109 mg/dl Bedside Ionized Calcium (Petra) 1.13 mmol/l Urine Color YELLOW Urine Appearance CLEAR Urine pH 5.5 Urine Specific [place] 1.028 Urine Protein 1+ Urine Glucose (UA) NEG Urine Ketones TRACE Urine Occult Blood 1+ Urine Nitrite NEG Urine Bilirubin NEG Urine Urobilinogen NEG Urine Leukocyte Esterase NEG Urine WBC (Auto) 1-5 /hpf Urine RBC (Auto) 0-4 /hpf Urine Hyaline Casts (Auto) 10-30 /lpf Urine Epithelial Cells (Auto) 10-20 /lpf Urine Bacteria (Auto) NEG Arterial Blood pH 7.42 Arterial Blood Partial Pressure CO2 42 mmHg Arterial Blood Partial Pressure O2 77 mm/Hg Arterial Blood HCO3 27 mmol/L Arterial Blood Oxygen Saturation 93.7 % Arterial Blood Base Excess 2.2 mEq/L Arterial Blood Gas Delivery 60% Mata Test POS Test 07/25/16 00:40 07/25/16 06:45 Lactic Acid Level 1.4 mmol/L White Blood Count 17.96 K/uL Red Blood Count 2.93 M/uL Hemoglobin 9.1 g/dL Hematocrit 26.9 % Mean Corpuscular Volume 91.8 fL Mean Corpuscular Hemoglobin 31.1 pg Mean Corpuscular Hemoglobin Concent 33.8 g/dl RDW Standard Deviation 45.7 fL RDW Coefficient of Variation 13.6 % Platelet Count 376 K/uL Mean Platelet Volume 8.6 fL Sodium Level 126 mmol/L Potassium Level 4.7 mmol/L Chloride Level 91 mmol/L Carbon Dioxide Level 27 mmol/L Anion Gap 8.0 mmol/L Blood Urea Nitrogen 27 mg/dl Creatinine 0.95 mg/dl Est Creatinine Clear Calc Drug Dose 38.7 ml/min Estimated GFR () 83.1 Estimated GFR (Non- 71.7 BUN/Creatinine Ratio 28.6 Random Glucose 133 mg/dl Calcium Level 8.1 mg/dl Magnesium Level 2.4 mg/dl Assessment and Plan 86 y/o M presents with acute respiratory failure with progressive lung cancer that pt had previously opted not to treat, normally wearing 4l [address] chest was obtained and initially read as a necrotizing pneumonia. This was discussed with the cardiothoracic service however, and it is felt that the cavitations may be related to his lung CA rather than to an acute infectious process. Hypoxic respiratory failure, acute on chronic, with encephalpathy- acute Pneumonia(mrsa, gram negative or anaerobic) vs progressive malignant process - history of underlying pulmonary fibrosis On Unasyn, azithro, vanco, and steroids, family is aware that the pts prognosis may be poor. Pulmonary med for oversight of medical management Hyponatremia - May be related to dehydration or additionally to SIADH owing to CA - Dementia - contributing to current delirium. Pt received Haldol in ER - Ativan PRN provided for behavior issues. DNR/DNI - DVT prevention, SCDS - avoid anticoagulation if extensive changes and necrosis are due to CA - he also has a history of PGI bleeds discussion with family regarding hospice they are leaning that way but not made final discussion, family tearful at bedside
[2016-07-26 07:21] VITALS: PULSE 102; O2SAT 90
[2016-07-26 07:22] VITALS: PULSE 102; O2SAT 90
[2016-07-26 07:53] VITALS: BP 129/69; PULSE 99; TEMP 36.8; O2SAT 90
[2016-07-26] MEDS ORDERED: MoRPHine SULFATE 4 MG/ML 1 ML CARP\\VIAL IV PRN (08:00)
[2016-07-26 08:18] LABS: CREATININE 0.96 mg/dl (0.60-1.40)
[2016-07-26 08:45] VITALS: O2SAT 90
[2016-07-26] MEDS: METHYLPREDNISOLONE IV 40 MG in SYRINGE 0 ML IV SCH (09:09)
[2016-07-26] MEDS: MoRPHine SULFATE 4 MG/ML 1 ML CARP\\VIAL IV PRN (09:09)
[2016-07-26 09:16] VITALS: BP 127/83; PULSE 106; TEMP 36.3; O2SAT 91
[2016-07-26] MEDS: MoRPHine SULFATE 2 MG/ML CARP IV PRN ×2 (09:43→13:05)
[2016-07-26] MEDS ORDERED: MoRPHine SULF/NSS 250MG/250ML 250 ML IV PRN (10:00)
--- NOTE | 2016-07-26 11:05 | Palliative Care Consultation ---
Consultation Date of Consultation: July 26, 2016. Requesting Physician: Dr. Wells Attending Physician: Dr. Wells Reason for Consultation: Comfort care History of Present Illness This 86 year old male patient presented to the ED two days ago with c/o confusion, SOB, and agitation. He has known lung adenocarcinoma since 2014 and opted for no treatment. CT scan in ED showed cavitations: necrotizing pneumonia vs. lung CA-- determined more likely to be his cancer. The patient's wishes are to not pursue any aggressive treatment, he was made DNR/DNI and admitted to telemetry unit on continuous bipap. Patient's condition not improving, and apparently there were several conversations held between the family and physician about goals of care. Family opted to make patient comfortable. He was transferred to medical unit and palliative care consulted. I met with the family and patient in room 407. Patient is completely disoriented, not responding verbally, making eye contact or even opening eyes. He is now off bipap per the family's wishes and on nasal cannula. He is restless in the bed and moaning. Just received 4mg IV morphine and 1mg IV lorazepam. Marcela, patient's daughter, Mariajose, patient's , and Mariajose's sister all at bedside. Marcela is tearful. They are all in agreement that would like patient to be comfort measures only-- discontinue all antibiotics and meds unrelated to comfort. Marcela said, "I just don't think he looks comfortable. I don't want to see him this way." We discussed a morphine infusion and the family feels this would be best for his comfort. See plan below. Past Medical/Surgical History Medical History: Pulmonary fibrosis Lung cancer Continuous home oxygen use, 4LNC Dementia Social History Smoking Status: Former Smoker History of Alcohol Use: No Drug Use: none Marital Status: Occupation Status: retired Review of Systems unable to obtain ROS Allergies Coded Allergies: No Known Allergies (Unverified , 07/24/16) Medications Current Inpatient Medications Medications (Trade) Dose Ordered Sig/Jared Route Start Time Stop Time Status Last Admin Dose Admin Ioversol (Optiray 320) 100 ml UD PRN IV 07/24/16 20:30 07/28/16 20:29 Al Hydrox/Mg Hydrox/Simethicone (Maalox Max Susp) 15 ml Q4H PRN PO 07/24/16 23:30 08/23/16 23:29 Ondansetron HCl (Zofran Inj) 4 mg Q6H PRN IV 07/24/16 23:30 08/23/16 23:29 Morphine Sulfate (MoRPHine SULFATE INJ) 4 mg Q3H PRN IV 07/25/16 00:00 08/08/16 00:00 07/26/16 09:09 4 MG Ipratropium [place] (Atrovent 0.02% 0.5MG/2.5ML Neb) 0.5 mg Q6R INH 07/25/16 15:00 08/24/16 14:59 07/26/16 07:18 0.5 MG Levalbuterol (Xopenex 1.25MG/ 0.5ML Neb) 1.25 mg Q6R INH 07/25/16 15:00 08/24/16 14:59 07/26/16 07:18 1.25 MG Lorazepam (Ativan Inj) 1 mg Q4H PRN IV 07/26/16 01:30 08/25/16 01:29 07/26/16 02:04 1 MG Morphine Sulfate (MoRPHine SULFATE INJ) 2 mg Q4H PRN IV 07/26/16 08:00 08/09/16 07:59 07/26/16 09:43 2 MG Morphine Sulfate (MoRPHine SULFATE INJ) 4 mg Q4H PRN IV 07/26/16 08:00 08/09/16 07:59 Lorazepam (Ativan Inj) 1 mg Q4H PRN IV 07/26/16 08:00 08/25/16 07:59 07/26/16 09:35 1 MG Lorazepam 0.5 mg 0.5 mg Q4H PRN IV 07/26/16 08:00 08/25/16 07:59 Morphine Sulfate/ Dextrose (Morphine Sulf/ Nss 250MG/250ML) 250 ml @ 0 mls/hr Q0M PRN IV 07/26/16 10:00 08/09/16 09:59 Atropine Sulfate (Atropine Sulfate 1% Oph Soln) 4 drops Q1H PRN OP 07/26/16 10:00 08/25/16 09:59 Physical Exam Date Time Temp Pulse Resp B/P Pulse Ox O2 Delivery O2 Flow Rate FiO2 07/26/16 09:16 36.3 106 22 127/83 91 BiPAP 07/26/16 08:00 BiPAP 70 07/26/16 07:53 36.8 99 22 129/69 90 BiPAP 07/26/16 07:22 102 90 70 07/26/16 07:21 102 22 90 BiPAP/CPAP 70 07/26/16 04:00 BiPAP 07/26/16 02:33 106 91 50 07/26/16 02:33 106 22 91 BiPAP/CPAP 60 07/25/16 23:59 BiPAP 07/25/16 23:45 93 BiPAP 07/25/16 23:35 36.6 107 24 166/78 89 BiPAP 07/25/16 22:05 106 86 50 07/25/16 20:00 97 BiPAP 4.0 60 07/25/16 19:41 104 21 97 BiPAP/CPAP 60 07/25/16 19:38 104 97 60 07/25/16 19:36 101 146/83 93 BiPAP 07/25/16 16:00 94 Nasal Cannula 4.0 07/25/16 15:35 36.6 100 22 132/73 94 Nasal Cannula 4.0 07/25/16 13:55 89 16 100 Nasal Cannula 6.0 07/25/16 12:00 Nasal Cannula 6.0 35 07/25/16 11:57 100 20 121/64 100 Nasal Cannula 5.0 Humidified Oxygen 07/25/16 11:14 93 15 98 BiPAP/CPAP 35 07/25/16 11:14 93 98 35 General Appearance: + mild distress (restless in bed, mild SOB), + thin Neck: supple, no JVD Respiratory: + decreased breath sounds, + accessory muscle use, + rhonchi ( coarse in upper airways) Cardiovascular: regular rate, rhythm, no edema, + normal peripheral pulses Abdomen: normal bowel sounds, soft Neurologic/Psychiatric: + disoriented, + pertinent finding (no meaningful response to stimuli) Skin: + pallor Laboratory Results Last 24 Hours Test 07/26/16 07:20 Creatinine 0.96 mg/dl Est Creatinine Clear Calc Drug Dose 38.3 ml/min Estimated GFR () 82.0 Estimated GFR (Non- 70.8 Assessment & Plan Palliative Performance Scale: 10 % Problem list: Altered mental status/agitation- delirium on dementia SOB Lung cancer with cavitations and bilateral airspace opacities on CT chest Respiratory failure Goals of care (Z51.5) Palliative care recommendations: discussed with patient's , daughter, and Dr. Wells -DNR/DNI -Comfort measures only -Discontinue all meds unrelated to comfort including abx -Continue lorazepam -Start morphine continuous infusion at 2mg/hr, titrate by 1mg/hr Q30min for pain /SOB -I shared with the family that patient is likely down to hours/days of life. He is not stable for transfer. [facility] hospice would be an option but I'm uncertain if he will survive long enough for family to sign on with an agency. Thank you kindly for this consult. I will follow as needed.
[2016-07-26] MEDS ORDERED: NURSING DECISION MEDICATION ORDER SCH ×4 (11:15→22:45)
[2016-07-26] MEDS: ATROPINE SULFATE 1% OP SOLN 5 ML BTL OP PRN ×5 (13:02→22:59)
[2016-07-26] MEDS ORDERED: SCOPOLAMINE 1.5 MG TDSY TD SCH (15:00)
[2016-07-26] MEDS ORDERED: NURSING VERBAL MED ORDER ONE (15:00)
--- NOTE | 2016-07-26 15:48 | Progress Note ---
Subjective Date of Service: July 26, 2016. Subjective Pt had a very uncomfortable night, with agitation and air hunger, at times not tolerating bipap, pt was chemically restrained and family had arrived at a decision to pursue comfort care. This decision is in alignment with the patients previous decisions not to treat lung cancer and not to want heroic life saving measures He was transitioned to comfort care on the am of 07/26 family at bedside Problem List Medical Problems: (1) Altered mental status Status: Acute (2) Dementia Status: Acute (3) GI bleed Status: Acute (4) Pneumonia Status: Acute (5) Pneumonia Status: Acute (6) Shortness of breath Status: Acute Review of Systems Respiratory: + cough, + dyspnea at rest, + shortness of breath pt is obtunded at this time Objective Vital Signs Date Time Temp Pulse Resp B/P Pulse Ox O2 Delivery O2 Flow Rate FiO2 07/26/16 04:00 BiPAP 07/26/16 02:33 106 91 50 07/26/16 02:33 106 22 91 BiPAP/CPAP 60 07/25/16 23:59 BiPAP 07/25/16 23:45 93 BiPAP 07/25/16 23:35 36.6 107 24 166/78 89 BiPAP 07/25/16 22:05 106 86 50 07/25/16 20:00 97 BiPAP 4.0 60 07/25/16 19:41 104 21 97 BiPAP/CPAP 60 07/25/16 19:38 104 97 60 07/25/16 19:36 101 146/83 93 BiPAP 07/25/16 16:00 94 Nasal Cannula 4.0 07/25/16 15:35 36.6 100 22 132/73 94 Nasal Cannula 4.0 07/25/16 13:55 89 16 100 Nasal Cannula 6.0 07/25/16 12:00 Nasal Cannula 6.0 35 07/25/16 11:57 100 20 121/64 100 Nasal Cannula 5.0 Humidified Oxygen 07/25/16 11:14 93 15 98 BiPAP/CPAP 35 07/25/16 11:14 93 98 35 07/25/16 08:00 BiPAP 35 07/25/16 07:24 100 24 94/57 94 CPAP 35 Physical Exam General Appearance: + moderate distress, + thin Neck: supple, trachea midline Respiratory/Chest: + respiratory distress, + decreased breath sounds, + accessory muscle use, + rhonchi Cardiovascular: no murmur, + tachycardia Abdomen: normal bowel sounds, soft Neurologic/Psychiatric: + depressed affect, + disoriented Laboratory Results Last 24 Hours Test 07/25/16 06:45 07/26/16 04:44 White Blood Count 17.96 K/uL Red Blood Count 2.93 M/uL Hemoglobin 9.1 g/dL Hematocrit 26.9 % Mean Corpuscular Volume 91.8 fL Mean Corpuscular Hemoglobin 31.1 pg Mean Corpuscular Hemoglobin Concent 33.8 g/dl RDW Standard Deviation 45.7 fL RDW Coefficient of Variation 13.6 % Platelet Count 376 K/uL Mean Platelet Volume 8.6 fL Sodium Level 126 mmol/L Potassium Level 4.7 mmol/L Chloride Level 91 mmol/L Carbon Dioxide Level 27 mmol/L Anion Gap 8.0 mmol/L Blood Urea Nitrogen 27 mg/dl Creatinine 0.95 mg/dl Est Creatinine Clear Calc Drug Dose 38.7 ml/min Estimated GFR () 83.1 Estimated GFR (Non- 71.7 BUN/Creatinine Ratio 28.6 Random Glucose 133 mg/dl Calcium Level 8.1 mg/dl Magnesium Level 2.4 mg/dl Assessment and Plan 86 M with progressive lung cancer, acute on chronic hypoxic respiratory failure and now decision to make comfort care is expected, morphine gtt, scopolamine ativan and atropine
[2016-07-26] MEDS: CHECK SCOPOLAMINE PATCH PLACEMENT SCH (16:13)
[2016-07-27] MEDS: CHECK SCOPOLAMINE PATCH PLACEMENT SCH (00:06)
[2016-07-27] MEDS: ATROPINE SULFATE 1% OP SOLN 5 ML BTL OP PRN ×2 (00:11→01:50)
[2016-07-27] MEDS: IPRATROPIUM BROMIDE NEB SOLN 0.02% 2.5 ML VIAL INH SCH (00:42)
[2016-07-27] MEDS: LEVALBUTEROL 1.25MG/0.5ML NEB INH SCH (00:42)
[2016-07-27] MEDS ORDERED: NURSING DECISION MEDICATION ORDER SCH ×2 (01:00)
--- NOTE | 2016-07-28 15:45 | Death Summary ---
Summary of Admission Date July 24, 2016 at 23:38 Date & Time of June,. 0205 Cause of adenocarcinoma of the lung Hospital Course 86 M with progressive lung cancer, acute on chronic hypoxic respiratory failure and now decision to make comfort care
== END 2016-07-27 02:05 | disposition expired | DRG 180 ==
LOC: ENRESERVDT → ENRESERVTM → EDBD 20:13 → C.EDC 20:14 → C.2T 23:38 → C.4E 07-26 08:57
PROVIDERS: ADMIT Internal Medicine; ATTEND Internal Medicine
DX: C34.90 Malignant neoplasm of unspecified part of unspecified bronchus or lung (principal); J18.9 Pneumonia, unspecified organism; J96.21 Acute and chronic respiratory failure with hypoxia; G93.40 Encephalopathy, unspecified; E87.1 Hypo-osmolality and hyponatremia; F03.90 Unspecified dementia, unspecified severity, without behavioral disturbance, psychotic disturbance, mood disturbance, and anxiety; Z51.5 Encounter for palliative care; Z66 Do not resuscitate; Z79.52 Long term (current) use of systemic steroids; Z79.899 Other long term (current) drug therapy; Z99.81 Dependence on supplemental oxygen